=== PATIENT | female | born 2000 | race Caucasian/White ===

== ENCOUNTER 2019-09-11 15:56 | Emergency (ER) | payer MEDICAID, OTHER ==
[~2019-09-11] VITALS: Ht 160 cm; Wt 48.6 kg
--- NOTE | 2019-09-11 16:39 | ED General ---
General Chief Complaint: General Problems/Pain Stated Complaint: POST BC IMPLANT REMOVAL/CONT BLEEDING Nursing Triage Note: Pt amb to triage with c/o Upper Lt arm bleeding. Pt reports on this day @ approx 1030 she had her Nexplanon impant BC removed by Dr. Martinez. Pt reports area began to bleed @ approx 1230 and has been unable to halt bleedig with pressure. Pt arrives with saturated drsg to Lt arm. A&OX4. Nursing Sepsis Screen: No Definite Risk Source of Information: Patient Exam Limitations: No Limitations History of Present Illness Date Seen by Provider: Sep 11, 2019 Time Seen by Provider: 16:39 Initial Comments 19-year-old female patient presents with complaints of bleeding from her left arm after having her Nexplanon implant removed today by Dr. Martinez. Patient reports mowing bleeding through the dressing. She denies removing the dressing. Denies numbness or tingling. Patient does also report having an upper respiratory tract infection. Reports yellow nasal drainage, nasal congestion, sore throat, and slight cough beginning several days ago. Significant other had similar symptoms last week. Timing/Duration: 4-6 Hours Modifying Factors: worse with Other (denies modifying factors) Allergies and Home Medications Allergies Coded Allergies: No Known Drug Allergies (Unverified , 09/11/19) Home Medications Cephalexin 500 Mg Tablet, 500 MG PO TID Prescribed by: CALLIE PAYNE on 09/11/19 2771 Patient Home Medication List Home Medication List Reviewed: Yes Review of Systems Review of Systems Constitutional: No chills, No diaphoresis, No dizziness, No fever, No malaise, No weakness EENTM: see HPI, nose congestion, throat pain; No ear pain, No eye pain, No tearing, No hoarseness, No mouth pain Respiratory: see HPI, cough; No phlegm, No short of breath, No stridor, No wheezing Cardiovascular: no symptoms reported Gastrointestinal: no symptoms reported Genitourinary: no symptoms reported Musculoskeletal: no symptoms reported Skin: see HPI Psychiatric/Neurological: No Symptoms Reported All Other Systems Reviewed Negative Unless Noted: Yes (Negative excepted noted.) Past Yejvqyj-Bqndoh-Ojulof Hx Past Med/Social Hx: Reviewed Nursing Past Med/Soc Hx Patient Social History Alcohol Use: Denies Use Recreational Drug Use: No Smoking Status: Never a Smoker 2nd Hand Smoke Exposure: No Recent Foreign Travel: No Contact w/Someone Who Travel: No Recent Infectious Disease Expo: No Recent Hopitalizations: No Seasonal Allergies Seasonal Allergies: No Past Medical History Surgeries: No Respiratory: No Cardiac: No Neurological: No Genitourinary: No Gastrointestinal: No Musculoskeletal: No Endocrine: No HEENT: No Cancer: No Psychosocial: No Integumentary: No Family Medical History Reviewed Nursing Family Hx No Pertinent Family Hx Physical Exam Vital Signs Vital Signs - First Documented 09/11/19 16:19 Temp 37.5 Pulse 110 Resp 15 B/P (MAP) 114/76 (89) Pulse Ox 100 O2 Delivery Room Air Capillary Refill : Less Than 3 Seconds Height, Weight, BMI Height: '" Weight: lbs. oz. kg; 18.00 BMI Method: General Appearance: No Apparent Distress, WD/WN HEENT: PERRL/EOMI, TMs Normal, Pharyngeal Erythema; No Tonsillar Exudate, No Tonsillar Enlargement; Other ((+) nasal congestion) Neck: Full Range of Motion, Supple, Lymphadenopathy (L) (TTP), Lymphadenopathy (R) (TTP) Respiratory: Lungs Clear, Normal Breath Sounds, No Accessory Muscle Use, No Respiratory Distress Cardiovascular: Regular Rate, Rhythm, No Murmur, Normal Peripheral Pulses Back: Normal Inspection Extremity: Normal Capillary Refill, Normal Range of Motion, No Pedal Edema, Other (small incision to the left medial bicep with clot formation and ecchymosis. no active bleeding noted. mildly TTP.) Neurologic/Psychiatric: Alert, Oriented x3, Normal Mood/Affect Skin: Normal Color, Warm/Dry, Ecchymosis (small incision to the left medial bicep with clot formation and ecchymosis. no active bleeding noted. mildly TTP.) Progress/Results/Core Measures Suspected Sepsis Recent Fever Within 48 Hours: No Infection Criteria Present: None New/Unexplained Altered Menta: No Sepsis Screen: No Definite Risk SIRS Temperature: Pulse: 110 Respiratory Rate: 15 Blood Pressure 114 /76 Mean: 89 Results/Orders Vital Signs/I&O 09/11/19 09/11/19 16:19 17:43 Temp 37.5 37.5 Pulse 110 110 Resp 15 15 B/P (MAP) 114/76 (89) 114/76 (89) Pulse Ox 100 100 O2 Delivery Room Air Room Air Capillary Refill : Less Than 3 Seconds Blood Pressure Mean: 89 Departure Communication (Admissions) Compression dressing and ice pack applied to the left bicep 20 minutes. No evidence of strength or bleeding on the dressing after 20 minutes or active bleeding from the wound. Wound redressed with 4 x 4 gauze and light compression using a 2 inch Srinivasan wrap. Plan for discharge to home. Patient to follow-up with her primary care provider for recheck as an outpatient. Impression Primary Impression: Hematoma following procedure Additional Impression: Upper respiratory infection Qualified Codes: J06.9 - Acute upper respiratory infection, unspecified Disposition: HOME, SELF-CARE Condition: Improved Departure-Patient Inst. Decision time for Depature: 17:34 Referrals: NO,LOCAL PHYSICIAN (PCP/Family) Primary Care Physician Patient Instructions: Bacterial Upper Respiratory Infection, Adult (DC) Add. Discharge Instructions: All discharge instructions reviewed with patient and/or family. Voiced understanding. Medications as instructed. Tylenol Extra Strength qjzk-mwp-dkyikgj as directed for pain. Ibuprofen 6 mg by mouth every 6 hours as needed for pain. Elevate the left arm on pillows. Ice pack for 20 minute intervals as needed. Do not remove the bandage for 3 days. Then remove the bandage, shower with antibacterial soap, and apply triple antibiotic ointment twice daily for 3 days. Jkvi-cnv-sbmkzzl decongestants, antihistamines, cough suppressants as needed for symptomatic relief. Follow-up with your family practitioner for recheck as an outpatient. Return in the emergency department for worsened symptoms or any other concerns. Scripts Cephalexin (Cephalexin) 500 Mg Tablet 500 MG PO TID, #21 TAB 0 Refills Prov: CALLIE PAYNE 09/11/19 Images Extremities-Upper 1 - Other-See Progress Note CALLIE PAYNE Sep 11, 2019 16:39
[2019-09-11] MEDS ORDERED: CEPH500T PO (17:39)
[2019-09-11 17:43] VITALS: BP 114/76
== END 2019-09-11 17:43 | disposition home or self-care (01) ==
LOC: ER 15:58
DX: L76.32 Postprocedural hematoma of skin and subcutaneous tissue following other procedure (principal); J06.9 Acute upper respiratory infection, unspecified

== ENCOUNTER 2019-09-27 12:06 | Emergency (ER) | payer MEDICAID ==
[~2019-09-27] VITALS: Ht 162.6 cm; Wt 46.4 kg
[~2019-09-27 12:06] MED LIST: CEPH500T PO
--- NOTE | 2019-09-27 14:12 | ED Cough/URI ---
General Chief Complaint: Cough/Cold/Flu Symptoms Stated Complaint: CONGESTION/PRODUCTIVE COUGH Nursing Triage Note: Pt amb to triage with c/o cough, congestion, et int. fever. Pt reports since 10/22/19 she has been experiencing symptoms. Pt reports productive cough (green phlegm). Pt afebrile at this time. S/o at side. Sepsis Screen: No Definite Risk Source: patient, other (significant other) Exam Limitations: no limitations History of Present Illness Date Seen by Provider: Sep 27, 2019 Time Seen by Provider: 14:12 Initial Comments 19-year-old female patient presents with complaints of a green productive cough, green nasal drainage, congestion, sore throat, and intermittent low-grade fever since Saturday. Patient was seen by this examiner 2 weeks ago in the emergency department. Patient does have a history of exercise-induced asthma. She denies wheezing or SOA. Denies using hecu-qqm-nujvnjp medications for symptoms. Timing/Duration: constant, other (onset Saturday) Severity/Quality: productive cough Modifying Factors: Worse With Coughing Allergies and Home Medications Allergies Coded Allergies: No Known Drug Allergies (Unverified , 09/11/19) Home Medications Albuterol Sulfate 18 Gm Hfa.aer.ad, 2 PUFF INH Q4H PRN for SHORTNESS OF BREATH Prescribed by: CALLIE PAYNE on 09/27/19 1540 Cephalexin 500 Mg Tablet, 500 MG PO TID Prescribed by: CALLIE PAYNE on 09/11/19 1739 Cephalexin 500 Mg Capsule, 500 MG PO TID Prescribed by: CALLIE PAYNE on 09/27/19 1540 Prednisone 20 Mg Tab, 40 MG PO DAILY Prescribed by: CALLIE PAYNE on 09/27/19 1540 Patient Home Medication List Home Medication List Reviewed: Yes Review of Systems Review of Systems Constitutional: see HPI, chills, fever, malaise EENTM: nose congestion, throat pain; No ear discharge, No ear pain, No hoarseness, No throat swelling Respiratory: see HPI, cough; No dyspnea on exertion; phlegm; No short of breath, No stridor, No wheezing Cardiovascular: no symptoms reported Gastrointestinal: No abdominal pain, No constipation, No diarrhea, No nausea, No vomiting Genitourinary: no symptoms reported Musculoskeletal: no symptoms reported Skin: no symptoms reported Psychiatric/Neurological: No Symptoms Reported All Other Systems Reviewed Negative Unless Noted: Yes (Negative excepted noted.) Past Abjpbcl-Lebkbq-Idzhak Hx Past Med/Social Hx: Reviewed Nursing Past Med/Soc Hx, Reviewed and Corrections made Patient Social History Alcohol Use: Denies Use Recreational Drug Use: No Smoking Status: Never a Smoker 2nd Hand Smoke Exposure: No Recent Foreign Travel: No Contact w/Someone Who Travel: No Recent Infectious Disease Expo: No Recent Hopitalizations: No Seasonal Allergies Seasonal Allergies: No Past Medical History Surgeries: No Respiratory: Yes Asthma (history of exercise-induced asthma as a child) Cardiac: No Neurological: No Genitourinary: No Gastrointestinal: No Musculoskeletal: No Endocrine: No HEENT: No Cancer: No Psychosocial: No Integumentary: No Family Medical History Reviewed Nursing Family Hx No Pertinent Family Hx Physical Exam Vital Signs - First Documented 09/27/19 12:50 Temp 36.8 Pulse 90 Resp 17 B/P (MAP) 107/72 (84) Pulse Ox 100 O2 Delivery Room Air Capillary Refill : Less Than 3 Seconds Height: '" Weight: lbs. oz. kg; 17.00 BMI Method: General Appearance: WD/WN, no apparent distress HEENT: PERRL/EOMI, TMs normal, pharyngeal erythema, other (positive nasal congestion and rhinorrhea. Sinuses nontender) Neck: non-tender, full range of motion, supple, lymphadenopathy (R), lymphadenopathy (L) Respiratory: lungs clear, no respiratory distress, no accessory muscle use, decreased breath sounds (left base); No crackles, No rales, No rhonchi, No wheezing Cardiovascular: normal peripheral pulses, regular rate, rhythm, no edema, no gallop, no murmur Extremities: no pedal edema, no calf tenderness, normal capillary refill Neurologic/Psychiatric: alert, normal mood/affect, oriented x 3 Skin: normal color, warm/dry Progress/Results/Core Measures Suspected Sepsis Recent Fever Within 48 Hours: Yes Infection Criteria Present: Suspected New Infection New/Unexplained Altered Menta: No Sepsis Screen: No Definite Risk SIRS Temperature: Pulse: 90 Respiratory Rate: 17 Blood Pressure 107 /72 Mean: 84 Results/Orders Micro Results Microbiology 09/27/19 Influenza Types A,B Antigen (BENIGNO) - Final, Complete My Orders Orders - CALLIE PAYNE Influenza A And B Antigens (09/27/19 13:41) Chest Pa/Lat (2 View) (09/27/19 13:41) Urine Bedside (09/27/19 14:34) Vital Signs/I&O 09/27/19 09/27/19 12:50 15:50 Temp 36.8 Pulse 90 79 Resp 17 16 B/P (MAP) 107/72 (84) 131/73 Pulse Ox 100 98 O2 Delivery Room Air Capillary Refill : Less Than 3 Seconds Blood Pressure Mean: 84 Diagnostic Imaging Diagonstic Imaging: Xray Plain Films/CT/US/NM/MRI: chest Comments Date of Exam:09/27/19 CHEST PA/LAT (2 VIEW) CLINICAL INDICATION: Patient with productive cough x5 days. EXAM: Chest x-ray, PA and lateral views. COMPARISONS: None. FINDINGS: Lungs/pleura: Lungs are clear. There is no pneumothorax. There is no pleural effusion. Mediastinum: Unremarkable. Pulmonary vasculature: Unremarkable. Heart: Unremarkable. Bones/extrathoracic soft tissue: Unremarkable. IMPRESSION: There is no radiographic evidence of acute cardiopulmonary process. Dictated by: Dictated on workstation # [id number] Reviewed: Reviewed by Me Departure Communication (Admissions) Patient seen and evaluated. Laboratory and diagnostic findings discussed with the patient. Plan for discharge to home. Impression Primary Impression: Bronchitis Disposition: HOME, SELF-CARE Condition: Improved Departure-Patient Inst. Decision time for Depature: 15:37 Referrals: NO,LOCAL PHYSICIAN (PCP/Family) Primary Care Physician Patient Instructions: Acute Bronchitis, Adult (DC) Add. Discharge Instructions: All discharge instructions reviewed with patient and/or family. Voiced understanding. Medications as instructed. Tylenol ywfq-qnv-zffpxeg as directed for pain or fever. Ibuprofen lcpr-fkp-xjwgnoq 6 and a milligrams by mouth every 6-8 hours as needed for pain or fever. Push fluids. Rest. Follow-up with your primary care provider for recheck as an outpatient. Return to the emergency department for worsened symptoms or any other concerns. Scripts Cephalexin (Cephalexin) 500 Mg Capsule 500 MG PO TID, #21 CAP 0 Refills Prov: CALLIE PAYNE PA 09/27/19 Prednisone (Prednisone) 20 Mg Tab 40 MG PO DAILY, #10 TAB 0 Refills Prov: CALLIE PAYNE PA 09/27/19 Albuterol Sulfate (Ventolin Hfa) 18 Gm Hfa.aer.ad 2 PUFF INH Q4H PRN for SHORTNESS OF BREATH, #1 INHALER 0 Refills Prov: CALLIE PAYNE 09/27/19 Work/School Note: Work Release Form Date Seen in the Emergency Department: Sep 27, 2019 Return to Work: Sep 28, 2019 Restrictions: Return-No Fever (24hrs) CALLIE PAYNE Sep 27, 2019 14:12
[2019-09-27] MEDS ORDERED: CEPH500C PO (15:40)
[2019-09-27] MEDS ORDERED: ALBU18HF2 INH (15:40)
[2019-09-27] MEDS ORDERED: PRD20T PO (15:40)
[2019-09-27 15:50] VITALS: BP 131/73
--- NOTE | 2019-09-27 16:08 | Diagnostic Imaging Report ---
CLINICAL INDICATION: Patient with productive cough x5 days. EXAM: Chest x-ray, PA and lateral views. COMPARISONS: None. FINDINGS: Lungs/pleura: Lungs are clear. There is no pneumothorax. There is no pleural effusion. Mediastinum: Unremarkable. Pulmonary vasculature: Unremarkable. Heart: Unremarkable. Bones/extrathoracic soft tissue: Unremarkable. IMPRESSION: There is no radiographic evidence of acute cardiopulmonary process. Dictated by: Dictated on workstation # [id number]
== END 2019-09-27 15:50 | disposition home or self-care (01) ==
LOC: EDUNIT# 12:06 → ER 12:07
DX: J45.998 Other asthma (principal)
CPT/HCPCS: 71046; 84703; 87804

== ENCOUNTER 2019-11-20 14:58 | Emergency (ER) | payer MEDICAID ==
[~2019-11-20] VITALS: Ht 162.5 cm; Wt 48.5 kg
[~2019-11-20 14:58] MED LIST changes: +ALBU18HF2 INH; +CEPH500C PO; +PRD20T PO
[2019-11-20] MEDS ORDERED: AMOX500C2 PO (15:18)
--- NOTE | 2019-11-20 15:21 | ED General ---
General Chief Complaint: General Problems/Pain Stated Complaint: R WRIST INJ,EAR INFECTION Source of Information: Patient Exam Limitations: No Limitations History of Present Illness Date Seen by Provider: Nov 20, 2019 Time Seen by Provider: 15:14 Initial Comments To ER with reports of right ear pain for a couple days no fever, no cough no shortness of breath. Also has some pain to the dorsal aspect of the left wrist he states "I have a problem with fidgeting with my pillow and bending my wrist back like this". Timing/Duration: 2-3 Days Severity: Moderate Associated Systoms: No Cough, No Fever/Chills Allergies and Home Medications Allergies Coded Allergies: No Known Drug Allergies (Unverified , 09/11/19) Home Medications Albuterol Sulfate 18 Gm Hfa.aer.ad, 2 PUFF INH Q4H PRN for SHORTNESS OF BREATH Prescribed by: CALLIE PAYNE on 09/27/19 1540 Amoxicillin 500 Mg Capsule, 500 MG PO TID Prescribed by: GEORGIA CAMILO on 11/20/19 1518 Cephalexin 500 Mg Tablet, 500 MG PO TID Prescribed by: CALLIE PAYNE on 09/11/19 1739 Cephalexin 500 Mg Capsule, 500 MG PO TID Prescribed by: CALLIE PAYNE on 09/27/19 1540 Prednisone 20 Mg Tab, 40 MG PO DAILY Prescribed by: CALLIE PAYNE on 09/27/19 1540 Patient Home Medication List Home Medication List Reviewed: Yes Review of Systems Review of Systems Constitutional: see HPI EENTM: see HPI, ear pain Respiratory: no symptoms reported Cardiovascular: no symptoms reported Genitourinary: no symptoms reported Musculoskeletal: see HPI Skin: no symptoms reported Psychiatric/Neurological: No Symptoms Reported Hematologic/Lymphatic: No Symptoms Reported Past Tcwrder-Gifzxl-Sdacyg Hx Patient Social History 2nd Hand Smoke Exposure: No Recent Foreign Travel: No Contact w/Someone Who Travel: No Recent Hopitalizations: No Seasonal Allergies Seasonal Allergies: No Past Medical History Surgeries: No Respiratory: Yes Asthma Cardiac: No Neurological: No Genitourinary: No Gastrointestinal: No Musculoskeletal: No Endocrine: No HEENT: No Cancer: No Psychosocial: No Integumentary: No Family Medical History No Pertinent Family Hx Physical Exam Vital Signs Vital Signs - First Documented 11/20/19 15:13 Temp 36.6 Pulse 100 Resp 18 B/P (MAP) 100/70 (80) Pulse Ox 99 O2 Delivery Room Air Capillary Refill : Height, Weight, BMI Height: '" Weight: lbs. oz. kg; 17.00 BMI Method: General Appearance: No Apparent Distress, WD/WN Eyes: Bilateral Eye Normal Inspection, Bilateral Eye PERRL, Bilateral Eye EOMI HEENT: PERRL/EOMI, Pharynx Normal, Other (right TM bulging but not erythematous) Respiratory: Normal Breath Sounds, No Accessory Muscle Use, No Respiratory Distress Cardiovascular: Regular Rate, Rhythm, Normal Peripheral Pulses Gastrointestinal: Normal Bowel Sounds, Non Tender, Soft Extremity: Normal Capillary Refill, Normal Inspection, Other (wrist has a normal appearance without ecchymosis, swelling, erythema.) Neurologic/Psychiatric: Alert, Oriented x3 Skin: Normal Color, Warm/Dry Progress/Results/Core Measures Suspected Sepsis SIRS Temperature: Pulse: Respiratory Rate: Blood Pressure / Mean: Results/Orders Vital Signs/I&O 11/20/19 11/20/19 15:13 15:37 Temp 36.6 36.6 Pulse 100 100 Resp 18 18 B/P (MAP) 100/70 (80) 100/70 (80) Pulse Ox 99 99 O2 Delivery Room Air Capillary Refill : Departure Impression Primary Impression: Tendinitis of wrist Additional Impression: OME (otitis media with effusion) Disposition: 01 HOME, SELF-CARE Condition: Stable Departure-Patient Inst. Decision time for Depature: 15:17 Referrals: NO,LOCAL PHYSICIAN (PCP/Family) Primary Care Physician Patient Instructions: Tendonitis, Serous Otitis Media (DC) Add. Discharge Instructions: 1. Return to ER for any concerns 2. Take anti-inflammatories as directed. Take these for about 2 days, if this helps with the ear pain then you do not need the antibiotics. However if the pain in the ear persists beyond about 2 more days then start the antibiotics. Wear the splint at all times except when showering on the wrist for about one week. All discharge instructions reviewed with patient and/or family. Voiced understanding. Scripts Naproxen (Naprosyn) 500 Mg Tablet 500 MG PO BID PRN for PAIN-MODERATE (5-7), #20 TAB Prov: GEORGIA CAMILO APRN 11/20/19 Amoxicillin (Amoxicillin) 500 Mg Capsule 500 MG PO TID, #21 CAP 0 Refills Prov: GEORGIA CAMILO APRN 11/20/19 GEORGIA CAMILO APRN Nov 20, 2019 15:21
[2019-11-20 15:37] VITALS: BP 100/70
--- OUTSIDE RECORDS SUMMARY | 2019-11-20 15:39 | XMS REPORT | Continuity of Care Document ---
Author Author [facility] Organization [facility] Address [address] [place] [address] Phone Support Name Relationship Address Phone Rosy Arevalo PRS [address] [place] [address] Deana Hammond PRS [address] [place] [address] Allergies, Adverse Reactions, Alerts No known allergies. Medications Medication Status Dose Units Route Sig Qty Days Start Date End Date Instructions Ferrous Sulfate Discontinued 325 MG TWICE A DAY July 09, 2018 1:34pm August 23, 2018 9:38am Vitamin Discontinued 1 TAB DAILY July 08, 2018 1:51pm August 20, 2018 9:17am Dextromethorphan Hbr Discontinued 10 MG Q6H September 11, 2019 9:03am October 05, 2019 1:24pm Cephalexin Discontinued 500 MG THREE TIMES A DAY October 05, 2019 1:23pm October 14, 2019 10:26am Metronidazole Discontinued 500 MG TWICE A DAY 14 August 05, 2018 2:54pm August 12, 2018 12:00am Pnv Cmb#95-Ferrous Fumarate-Fa Discontinue d 1 TAB DAILY August 20, 2018 9:18am October 03, 2018 1:27pm Benzocaine-Menthol Discontinued 1 SPRAY NEEDED August 23, 2018 9:36am October 03, 2018 1:27pm Ibuprofen Discontinued 6 00 MG Q6H 2 August 23, 2018 9:36am October 03, 2018 1:27pm Meloxicam Discontinued 7 .5 MG DAILY April 09, 2019 4:08pm September 11, 2019 9:02am Problems Active Problems Medical Problem Onset Date Status False labor Active Acute thoracic myofascial strain Active Normal in multigravida in third trimester Active Tachycardia Active Sepsis Active Size of fetus inconsistent with dates in third trimest er Active Procedures No procedure information available. Relevant Diagnostic Tests and/or Laboratory Data Laboratory Results Test Date/Time Result Interpretation Reference Range Result Comment Performing Site Urine Test (Clinic) Negative mIU/mL Pap Smear Diagnosis Se e comment NEGATIVE FOR INTRAEP ITHELIAL LESION OR MALIGNANCY. Laboratory [facility] [employer] Liquid Based Pap Specimen Adequacy See comment Satisfactory for evaluation. Endocervical and/or squamous metaplasticcells (endocervical component) are present. Laboratory [facility] [employer] Pap Smear Performed By See comment Dawson Crum, Physical Testing Supervisor (ASCP) Laboratory [facility] Liquid Based Pap Comment . Labo ratory [facility] Liquid Based Pap Note See comment The Pap smear is a s creening test designed to aid in the detection ofpremalignant and malignant conditions of the uterine cervix. It is not adiagnostic procedure and should not be used as the sole means of detectingcervical cancer. Both false-positive and false- negative reports do occur. . Laboratory [facility] [employer] Pap Smear Method Note See comment The HPV DNA reflex c riteria were not met with this specimen resulttherefore, no HPV testing was performed. .Performed at: [place] - [facility] [place], [place] [id number] Director: Cecy Robertson MD, Phone: [phone] at: 8( - [facility] [place], [place] [id number] Director: Cecy Robertson MD, Phone: [phone] [employer] Health Concerns Health Concerns may be documented in an alternate section. Advance Directives Advance Directive Response Recorded Date/Time Does the patient have an Advance Directive on File? No July 08, 2018 6:23pm Do you have a Medical Power of Content Engineer? N o July 08, 2018 6:23pm Do you have a Health Care Proxy? No July 08, 2018 6:23pm Do you have a Living Will? No July 08, 2018 6:23pm Chief Complaint and Reason for Visit Chief Complaint fu lab orders fu Encounters Encounter Location(s) Ar rival/Admit Date Discharge/Depart Date Provider(s) Departed Physician/Provider Office [facility] October 03, 2018 1:17pm October 03, 2018 2:02pm Deana au MD Departed Emergency [facility] April 09, 2019 3:34pm March 4:10pm null Departed Physician/Provider Office Visit [facility] October 05, 2019 1:13pm October 05, 2019 1:53pm Deana diamond MD Departed Referred [facility] -Laboratory October 05, 2019 7:36pm October 05, 2019 7:37pm Deana Hammond MD Departed Physician/Provider Office Visit [facility] October 14, 2019 10:15am October 14, 2019 10:43am Deana zaragoza MD Assessments No Assessments Information Available Family History Relationship Condition A ge at Onset Recorded Date/Time mother Malignant neoplasm Unknown Absence seizure Unknown brother Mass of brain Un known Functional Status No Functional Status information available Goals Goals may be documented in an alternate section. Immunizations Immunization Event Date Not Given Reason Dose Number Plaster Tender Lot Number Vaccine Information Statement (VIS) Deta il Quadrivalent Influenza June 10, 2018 Mental Status No Mental Status Information Available Medical Equipment No Medical Equipment Information available Insurance Providers Guarantor Eli Mejia Address [address] [facility] [address] Contact Info. Home Phone: Payer Policy Id Coverage Id Subscriber's Name Subscriber Id Effective Date Expiration Date [facility] [id number] Eli Mejia [id number] Self Pay Self N/A Plan of Treatment 1) After informed consent was obtained the patient was placed in the dorsal lithotomy position and was prepped in the usual fashion. The cervix was visualized with the speculum an d the anterior lip of the cervix was grasped with the single tooth tenaculum. The uterus was then s ound and the mirena IUD inserted without difficulty. A 4 cm IUD string was left visible. Hemostasis was obtained before all instruments were removed from the vagina. The patient tolerated the procedur e well. 2) Pelvic rest x 1 week 3) Patient to report any severe abdominal pain or fever 4) RTC in 4 weeks for IUD string check 1) Pap smear and CBE done 2) Breast exam demonstrated 3) Recommend condom use 4) RTC in 1 week for mirena placement Future Tests Future scheduled test information is unavailable Pending Tests Pending diagnostic test information is unavailable Future Visits Future appointment information is unavailable Referrals to Other Providers Referral information is unavailable Future Procedures Future procedure information is unavailable Future Medications Future medication information is unavailable Patient Instructions Breast Self Exam for Women (AC) Pap Smear (AC) Social History Smoking Status Status Date of Observation Unknown if ever smoked April 09, 2019 4:08pm Observation Status Observation Response Rene e of Response Smoking Status Former Smoker April 09, 2019 4:08pm Exposure to Secondhand Smoke Yes April 09, 2019 4:08pm Tobacco Type Cigarettes April 09, 2019 3:45pm Alcohol Use None April 09, 2019 4:08pm Illicit Drug Use No Augu 2018 4:08pm Assigned Sex Female Vital Signs Vital Reading Result Ref erence Range Collection Date/Time Height 64 [in_i] October 05, 2019 1:24pm Weight 47.17 kg October 05, 2019 1:24pm Heart Rate 90 /min 60-100 October 05, 2019 1:24pm Respiratory rate 18 /min 12-20 October 05, 2019 1:24pm Oxygen saturation by Pulse oximetry 97 % 95- 100 October 05, 2019 1:24pm BP Systolic 98 mm[Hg] 90 -140 October 05, 2019 1:24pm BP Diastolic 60 mm[Hg] 6 0-90 October 05, 2019 1:24pm BMI (Body Mass Index) 17.8 kg/m2 October 05, 2019 1:24pm Height 64 [in_i] October 14, 2019 10:26am Weight 47.62 kg October 14, 2019 10:26am Heart Rate 88 /min 60-100 October 14, 2019 10:26am Respiratory rate 18 /min 12-20 October 14, 2019 10:26am Oxygen saturation by Pulse oximetry 99 % 95- 100 October 14, 2019 10:26am BP Systolic 102 mm[Hg] 9 0-140 October 14, 2019 10:26am BP Diastolic 60 mm[Hg] 6 0-90 October 14, 2019 10:26am BMI (Body Mass Index) 18.0 kg/m2 October 14, 2019 10:26am
--- OUTSIDE RECORDS SUMMARY | 2019-11-20 15:39 | XMS REPORT | Continuity of Care Document ---
Author Author [facility] Organization [facility] Address [address] [place] [address] Phone Support Name Relationship Address Phone Rosy Arevalo PRS [address] [place] [address] Deana Hammond PRS [address] [place] [address] Allergies, Adverse Reactions, Alerts No known allergies. [...] FOR INTRAEP ITHELIAL LESION OR MALIGNANCY. Laboratory [employer] Liquid Based Pap Specimen Adequacy See comment Satisfactory for evaluation. Endocervical and/or squamous metaplasticcells (endocervical component) are present. Laboratory [employer] Pap Smear Performed By See comment Dawson Crum, Recording Engineer (ASCP) Laboratory [employer] Liquid Based Pap Comment . Labo ratory [employer] Liquid Based Pap Note See comment The Pap smear is a s creening test designed to aid in the detection ofpremalignant and malignant conditions of the uterine cervix. It is not adiagnostic procedure and should not be used as the sole means of detectingcervical cancer. Both false-positive and false- negative reports do occur. . Laboratory [facility] [employer] Pap Smear Method Note See comment The HPV DNA reflex c riteria were not met with this specimen resulttherefore, no HPV testing was performed. .Performed at: [place] - [facility] [place], [place] [id number] Director: Cecy Robertson MD, Phone: [phone] at: 8( - [facility] [place], [place] [id number] Director: Cecy Robertson MD, Phone: [phone] [employer] Health Concerns Health Concerns may be documented in an alternate section. Advance Directives Advance Directive Response Recorded Date/Time Does the patient have an Advance Directive on File? No July 08, 2018 6:23pm Do you have a Medical Power of Eastern Philosophy Professor? N o July 08, 2018 6:23pm Do you have a Health Care Proxy? No July 08, 2018 6:23pm Do you have a Living Will? No July 08, 2018 6:23pm Chief Complaint and Reason for Visit Chief Complaint fu lab orders fu Encounters Encounter Location(s) Ar rival/Admit Date Discharge/Depart Date Provider(s) Departed Physician/Provider Office Visit [facility] October 03, 2018 1:17pm October 03, 2018 2:02pm Deana au MD Departed Emergency [facility] April 09, 2019 3:34pm March 4:10pm null Departed Physician/Provider Office Visit [facility] October 05, 2019 1:13pm October 05, 2019 1:53pm Deana diamond MD Departed Referred [facility] -Laboratory October 05, 2019 7:36pm October 05, 2019 7:37pm Deana Hammond MD Departed Physician/Provider Office Visit [facility] October 14, 2019 10:15am October 14, 2019 [...] Event Date Not Given Reason Dose Number Dental Laboratory Technician Apprentice Lot Number Vaccine Information Statement (VIS) Deta il Quadrivalent Influenza June 10, 2018 Mental Status No Mental Status Information Available Medical Equipment No Medical Equipment Information available Insurance Providers Guarantor Eli Mejia Address [address] [facility] [address] Contact Info. Home Phone: Payer Policy Id Coverage Id Subscriber's Name Subscriber Id Effective Date Expiration Date [facility] [id number] Eli Mejia [id number] Self Pay Self N/A Plan of Treatment [...]
--- OUTSIDE RECORDS SUMMARY | 2019-11-20 15:39 | XMS REPORT | Continuity of Care Document ---
Author Organization Unknown Address Unknown Phone Unavailable Allergies Active Description Code Type Severity Reaction Onset Reported/Identified Relationship to Patient Clinical Status Yes No Known Drug Allergies [id number] Drug Allergy Unknown N/A 09/11/2019 Medications There is no data. Problems Date Dx Coded Attending Type Code Diagnosis Diagnosed By 09/11/2019 CALLIE EMANUEL Ot J06.9 ACUTE UPPER RESPIRATORY INFECTION, UNSPE 09/11/2019 CALLIE EMANUEL Ot L76.32 POSTPROC HEMATOMA OF SKIN, SUBCU FOLLOWI 09/15/2019 CALLIE EMANUEL Ot J06.9 ACUTE UPPER RESPIRATORY INFECTION, UNSPE 09/15/2019 CALLIE EMANUEL Ot L76.32 POSTPROC HEMATOMA OF SKIN, SUBCU FOLLOWI 09/17/2019 CALLIE EMANUEL Ot J06.9 ACUTE UPPER RESPIRATORY INFECTION, UNSPE 09/17/2019 CALLIE EMANUEL Ot L76.32 POSTPROC HEMATOMA OF SKIN, SUBCU FOLLOWI 10/03/2019 CALLIE EMANUEL Ot J45.998 OTHER ASTHMA 10/03/2019 CALLIE EMANUEL Ot R 05 COUGH Procedures There is no data. Results Test Result Range Influenza virus A and B antigen detectio n - 09/27/19 12:56 FLU RESULT NEGATIVE FOR INFLUENZA A AND B ANTIGENS BY [place] NRG Encounters ACCT No. Visit Date/Time Discharge Status Pt. Type Provider Facility Loc./Unit Complaint [id number] 09/27/2019 12:07:00 15:50:00 DIS Outpatient CALLIE EMANUEL [facility] ER CONGESTION/PRODUCTIVE C OUGH [id number] 09/11/2019 15:58:00 17:43:00 DIS Emergency CALLIE EMANUEL [facility] ER POST BC IMPLANT REMOVAL /CONT BLEEDING [id number] 11/20/2019 14:59:[address] Emergency GEORGIA CAMILO APRN [facility] ER R WRIST INJ,EAR INFECTION
[2019-11-20] MEDS ORDERED: NAPR-1071 PO (15:42)
== END 2019-11-20 15:37 | disposition home or self-care (01) ==
LOC: EDUNIT# 14:58 → ER 14:59
DX: M70.832 Other soft tissue disorders related to use, overuse and pressure, left forearm (principal); H65.91 Unspecified nonsuppurative otitis media, right ear
CPT/HCPCS: 99282